=== PATIENT | female | born 1990 | race American Indian/Alaskan Native ===

== ENCOUNTER 2021-11-14 09:43 | Emergency (ER) | payer SELFPAY ==
[2021-11-14] MEDS ORDERED: ASPIRIN 325 MG TAB PO ONE (10:28)
[2021-11-14] MEDS ORDERED: SODIUM CHLORIDE 0.9% 500 ML 500 ML IV ONE (10:28)
[2021-11-14] MEDS ORDERED: MORPHINE 4 MG/1 ML INJ IV ONE (10:29)
[2021-11-14] MEDS ORDERED: ONDANSETRON 4 MG/2 ML INJ IV ONE (10:29)
--- NOTE | 2021-11-14 10:29 | Emergency Department Report ---
ED Chest Pain HPI - General Chief Complaint: Chest Pain Stated Complaint: CHEST PAIN/SOB Time Seen by Provider: 11/14/21 10:00 Source: patient Mode of arrival: Ambulatory Limitations: No Limitations - History of Present Illness Initial Comments: 31-year-old -[place] female presents to the ER today with complaints of chest pain. Patient states that about 1 hour ago while she was standing in her closet she started with sudden onset of substernal chest pain which radiates into her upper back. She states that the pain was severe to the point where she felt like she just could not move. She described as a sharp/tight pain which was constant but waxes and wanes. She states that the pain seemed to get worse when she moves in certain positions, and when she take a deep breath. When she would just stay completely still it seemed to improve slightly. She reports that with the pain she felt like she was breathing heavy and fast when she was hyperventilating. She denies any nausea vomiting or diaphoresis with the pain. She states that when the pain first started was a 10 out of 10. Currently is 9 out of 10. She denies any associated lower extremity swelling or calf pain. She denies any recent URI symptoms or cough. She has not gotten any of the COVID-19 vaccines. She denies any recent diagnosis of Covid. She denies any recent travel. She denies illicit drug use or alcohol abuse. She does smoke tobacco. She denies any increase stressors lately. She denies known hx of anxiety and depression. As far as her past medical history, she states that she has been told in the past that her blood pressure is elevated whenever she would go attempt to give blood, but she had never followed up with a primary care doctor about it. She denies any history of diabetes, hyperlipidemia or heart disease. She also denies history of DVT or PE. She states that her dad has had "heart issues in the past" but she only recently found out that he currently has CAD and supposedly is being monitored for coronary artery stent. She states that he is currently 51 years of age. Complaint: chest pain -: This morning - Related Data Previous Rx's Medication Instructions Recorded Last Taken Type Amlodipine Besylate [Norvasc] 5 mg PO DAILY #30 11/14/21 Unknown Rx Allergies Allergy/AdvReac Type Severity Reaction Status Date / Time No Known Allergies Allergy Verified 11/14/21 09:54 Heart Score - HEART Score History: Slightly suspicious EKG: Non-specific Age: < 45 Risk factors: > 3 risk factors or hx of atherosclerotic disease (Obesity, Tobacco smoker, suspected undiagnosed HTN, Family hx) Troponin: < normal limit HEART Score: 3 - EKG Read Time Time EKG Completed: 10:01 EKG Read Time: 10:06 - Critical Actions Critical Actions: 0-3 pts:0.9-1.7%risk of adverse cardiac event.Candidate for discharge ED Review of Systems ROS: Stated complaint: CHEST PAIN/SOB Other details as noted in HPI Comment: All other systems reviewed and negative Constitutional: denies: chills, fever Eyes: denies: eye pain, eye discharge, vision change ENT: denies: ear pain, throat pain Respiratory: shortness of breath Cardiovascular: chest pain Endocrine: no symptoms reported Gastrointestinal: denies: abdominal pain, nausea, vomiting, diarrhea, constipation, hematemesis, hematochezia Genitourinary: denies: urgency, dysuria, frequency, hematuria, discharge, abnormal menses, dyspareunia Musculoskeletal: denies: back pain, joint swelling, arthralgia, myalgia Skin: denies: rash, lesions, change in color, change in hair/nails, pruritus Neurological: denies: headache, weakness, numbness, paresthesias, confusion, abnormal gait, vertigo Psychiatric: denies: anxiety, depression, auditory hallucinations, visual hallucinations, homicidal thoughts, suicidal thoughts Hematological/Lymphatic: denies: easy bleeding, easy bruising, swollen glands ED Past Medical Hx - Past Medical History Previous Medical History?: No - Surgical History Past Surgical History?: No - Medications Home Medications: Home Medications Medication Instructions Recorded Confirmed Last Taken Type Amlodipine Besylate [Norvasc] 5 mg PO DAILY #30 11/14/21 Unknown Rx ED Physical Exam - General Limitations: No Limitations General appearance: alert, in no apparent distress, obese - Head Head exam: Present: atraumatic, normocephalic, normal inspection - Eye Eye exam: Present: normal appearance, PERRL, EOMI Pupils: Present: normal accommodation - Neck Neck exam: Present: normal inspection, full ROM. Absent: meningismus - Respiratory Respiratory exam: Present: normal lung sounds bilaterally. Absent: respiratory distress, wheezes, rales, rhonchi - Cardiovascular Cardiovascular Exam: Present: regular rate, normal rhythm, normal heart sounds - GI/Abdominal GI/Abdominal exam: Present: soft. Absent: distended, tenderness, guarding, rebound - Extremities Exam Extremities exam: Present: normal inspection, full ROM. Absent: pedal edema, calf tenderness - Back Exam Back exam: Present: normal inspection, full ROM - Neurological Exam Neurological exam: Present: alert, oriented X3, CN II-XII intact, normal gait - Psychiatric Psychiatric exam: Present: normal affect, normal mood - Skin Skin exam: Present: intact ED Course Vital Signs 11/14/21 11/14/21 09:56 14:19 Temperature 98.0 F Pulse Rate 85 68 Respiratory 18 Rate Blood Pressure 156/102 Blood Pressure 151/94 [Left] O2 Sat by Pulse 99 Oximetry ED Medical Decision Making - Lab Data Result diagrams: 11/14/21 10:35 11/14/21 10:35 - EKG Data -: EKG Interpreted by Or EKG shows normal: sinus rhythm Rate: normal No standard instances Rhythm: NSR T wave inversions noted in: III, aVF, v6 - Radiology Data Radiology results: report reviewed Patient: CURTIS KUNH MR#: [id number] : 1990 Acct:[id number] Age/Sex: 31 / F ADM Date: 11/14/21 Loc: ED Attending Dr: Ordering Physician: GUY RENEE Date of Service: 11/14/21 Procedure(s): XR chest routine 2V Accession Number(s): [id number] cc: GUY RENEE Fluoro Time In Minutes: CHEST 2 VIEWS INDICATION / CLINICAL INFORMATION: Chest Pain. COMPARISON: None available. FINDINGS: SUPPORT DEVICES: None. HEART / MEDIASTINUM: No significant abnormality. LUNGS / PLEURA: No significant pulmonary or pleural abnormality. No p neumothorax. ADDITIONAL FINDINGS: No significant additional findings. IMPRESSION: 1. No acute findings. Signer Name: Jack Hannah MD Signed: 11/14/2021 12:20 PM Workstation Name: [id number] Transcribed By: CW Dictated By: JANESSA HANNAH MD Electronically Authenticated By: JANESSA HANNAH MD Signed Date/Time: 11/14/21 1220 DD/ 1219 TD/TT: - Medical Decision Making 1430: Labs reviewed -- CBC unremarkable. CMP unremarkable including 2 negative trop. D-dimer was normal. CXR shows nothing acute. EKG shows nonspecific Twave inversion changes but no STEMI or concerning acute ischemic changes or significant dysrhythmias. She has a heart score currently of 3. patient currently resting comfortably in recliner. She is not toxic or any any significant pain or respiratory distress. She is neurologically intact. Her gait is normal. Exact cause of her pain unclear, but at this time I do not suspect unstable angina, PE, aortic dissection, aneurysm, or any other emergent conditions warranting additional testing or admission at this time. Discussed case and results with Dr Guzman, agrees with work-up and plan for discharge with patient information being referred over to [facility] so she can be contacted for outpatient cardiology or follow-up. Patient repeat blood pressure did improve but still elevated and so she will be started on low- dose Norvasc and recommend she takes a baby aspirin daily. Discussed all results with patient. Informed her that her information will be faxed over to the [facility] and they will contact her for outpatient cardiology follow-up. She will also be given referral information to local PCP who can help monitor her blood pressure and recommend she checks her blood pressure no more than twice a day and keep a record of her blood pressure. Patient understands that if her pain gets worse in any way to return immediately to the ER. Patient was stable at time of discharge. Critical care attestation.: If time is entered above; I have spent that time in minutes in the direct care of this critically ill patient, excluding procedure time. ED Disposition Clinical Impression: Nonspecific chest pain, Hypertension Disposition: HOME / SELF CARE / HOMELESS Is pt being admited?: No Does the pt Need Aspirin: No Condition: Stable Instructions: Nonspecific Chest Pain, Adult, [id number], Hypertension (ED) Additional Instructions: I recommend that you take the norvasc daily as prescribed for your high blood pressure. I do recommend that you check your blood pressure twice a day, write down the readings so when you follow-up you can bring your readings with you to your doctor's appointment. Since you do not have a primary care doctor 1 will be provided for you on your discharge instructions. Do recommend that you call to schedule an appointment for the next 1 to 2 weeks. Your information will also be faxed over to [facility] where they will call you for an outpatient cardiology follow-up. You can take a baby aspirin daily. Return to the ER if your symptoms worsens or changes in any way. Prescriptions: Amlodipine Besylate [Norvasc] 5 mg PO DAILY #30 Referrals: AMISHA SERNA MD [Staff Physician] - 3-5 Days Forms: Work/School Release Form(ED) Time of Disposition: 14:24
[2021-11-14 11:34] LABS: Basophils % (Auto) 0.5 % (0.0-1.8); Eosinophils # (Auto) 0.1 K/mm3 (0.0-0.4); Eosinophils % (Auto) 1.5 % (0.0-4.3); Hematocrit 44.2 % (30.3-42.9); Hemoglobin 14.5 gm/dl (10.1-14.3); Lymphocytes # (Auto) 2.3 K/mm3 (1.2-5.4); Lymphocytes % (Auto) 35.9 % (13.4-35.0); Mean Corpuscular HGB Conc 33 % (30-34); Mean Corpuscular Volume 86 fl (79-97); Monocytes # (Auto) 0.4 K/mm3 (0.0-0.8); Monocytes % (Auto) 6.1 % (0.0-7.3); Platelet Count 359 K/mm3 (140-440); Red Blood Count 5.13 M/mm3 (3.65-5.03); Red Cell Distribution Width 13.7 % (13.2-15.2)
[2021-11-14 12:09] LABS: Alanine Aminotransferase 18 units/L (7-56); Albumin 4.2 g/dL (3.9-5); BUN/Creatinine Ratio 18; Blood Urea Nitrogen 14 mg/dL (7-17); Calcium 10.1 mg/dL (8.4-10.2); Hemolysis Index 16
--- NOTE | 2021-11-14 12:24 | XRay Report ---
CHEST 2 VIEWS INDICATION / CLINICAL INFORMATION: Chest Pain. COMPARISON: None available. FINDINGS: SUPPORT DEVICES: None. HEART / MEDIASTINUM: No significant abnormality. LUNGS / PLEURA: No significant pulmonary or pleural abnormality. No pneumothorax. ADDITIONAL FINDINGS: No significant additional findings. IMPRESSION: 1. No acute findings. Signer Name: Jack Hannah MD Signed: 11/14/2021 12:20 PM Workstation Name: [id number]
[2021-11-14 14:20] VITALS: BP 151/94
--- NOTE | 2021-11-16 10:09 | Electrocardiograph Report ---
[facility] Test Date: 2021-11-14 Test Time: 10:01:07 Pat Name: CURTIS KUHN Department: Room: Gender: F Management Intern: MIKAYLA : 1990 Requested By: GUY RENEE Order Number: [id number] Reading MD: An Gonzales Measurements Intervals Adams Rate: 78 P: 45 WY: 147 QRS: 63 QRSD: 82 T: -23 QT: 387 QTc: 442 Interpretive Statements Sinus rhythm Nonspecific repol abnormality, inferior leads Consider left ventricle hypertrophy No previous ECG available for comparison Electronically Signed On 11-16-2021 10:09:29 EST by An Gonzales
== END 2021-11-14 15:06 | disposition home or self-care (01) ==
LOC: ED 09:43
DX: R07.9 Chest pain, unspecified (principal); I10 Essential (primary) hypertension
CPT/HCPCS: 36415; 71046; 80053; 83690; 84484; 84703; 85025; 85379; 93005; 93010; 96374; 96375; 99284; J2270; J2405; J7040